=== PATIENT | female | born 1945 | race Caucasian/White ===

== ENCOUNTER 2019-07-09 09:05 | Emergency (ER) | payer OTHER ==
[~2019-07-09] VITALS: Ht 165.1 cm; Wt 61.2 kg
[~2019-07-09 09:05] MED LIST: ACYCLOVIR 200200 MG PO; ASPIRIN EC81 M1 PO; CARDIZEM CD240 MG PO; CRESTOR5 MG PO; FEMTRACE PO; GLUCOSAMINE-CH900 MG; LISINOPRIL40 MG PO; OMEGA-31000 M1 PO; PRILOSEC 20 MG20 MG PO; PROTONIX40 M2 PO; VITAMIN D31000 UNI2 PO; XANAX 0.5 MG0.5 MG PO; ZANTAC 150MG T150 M1 PO; ZANTAC 150MG T150 MG PO
[2019-07-09] MEDS ORDERED: AMITRIPTYLINE H10 M3 PO (09:10)
[2019-07-09] MEDS ORDERED: MELATONIN3 M3 PO (09:10)
[2019-07-09 09:18] LABS: HEMATOCRIT 41.7 % (37.0-47.0); MCH 33.5 pg (26.0-34.0); MCHC 33.6 g/dL (28.0-37.0); MCV 99.7 fL (80.0-100.0); PLATELET COUNT 214 thou/uL (150-400); RBC 4.18 mil/uL (4.20-5.00); RDW 14.3 % (10.5-14.5); WBC 8.5 thou/uL (4.0-11.0)
[2019-07-09 09:28] LABS: ANION GAP 8 mmol/L (7-16); BUN 28 mg/dL (7-18); CALCIUM 9.4 mg/dL (8.5-10.1); CHLORIDE 104 mmol/L (98-107); CO2 28 mmol/L (21-32); CREATININE 1.2 mg/dL (0.6-1.0); GLUCOSE 119 mg/dL (74-106); POTASSIUM 3.5 mmol/L (3.5-5.1); SODIUM 140 mmol/L (136-145)
[2019-07-09 09:38] LABS: ALBUMIN 3.7 g/dL (3.4-5.0); SGOT 22 U/L (15-37); SGPT 25 U/L (30-65); TOTAL BILIRUBIN 0.3 mg/dL (<0.1-1.0); TOTAL PROTEIN 7.4 g/dL (6.4-8.2); TROPONIN-I <0.06 ng/mL (<0.06)
[2019-07-09 09:47] LABS: ABSOLUTE NEUTROPHILS 4.8 thou/uL (1.4-8.2)
[2019-07-09 09:48] LABS: ANISOCYTOSIS SLIGHT
[2019-07-09] MEDS ORDERED: WELLBUTRIN SR150 MG PO (10:53)
[2019-07-09 12:09] VITALS: BP 131/73
--- NOTE | 2019-07-09 14:14 | EKG ---
[address] [place] [address] ELECTROCARDIOGRAM REPORT Name: ROMULO DIAZ [facility]: 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
--- NOTE | 2019-07-09 14:14 | EKG ---
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
== END 2019-07-09 12:10 | disposition home or self-care (01) ==
LOC: ER 09:05
PROVIDERS: Emergency Medicine
DX: R07.9 Chest pain, unspecified (principal); I10 Essential (primary) hypertension; K21.9 Gastro-esophageal reflux disease without esophagitis; E78.5 Hyperlipidemia, unspecified; F41.9 Anxiety disorder, unspecified; Z91.041 Radiographic dye allergy status; Z88.2 Allergy status to sulfonamides; Z88.1 Allergy status to other antibiotic agents; Z88.8 Allergy status to other drugs, medicaments and biological substances

== ENCOUNTER → 2020-03-16 | Outpatient (CLI) | payer OTHER ==
[~2020-03-16] MED LIST changes: +AMITRIPTYLINE H10 M3 PO; +MELATONIN3 M3 PO; +WELLBUTRIN SR150 MG PO
== END ==
LOC: SJCVC 15:47
PROVIDERS: ATTEND Internal Medicine Cardiovascular Disease
DX: I25.10 Atherosclerotic heart disease of native coronary artery without angina pectoris (principal); R93.1 Abnormal findings on diagnostic imaging of heart and coronary circulation; E78.00 Pure hypercholesterolemia, unspecified; I10 Essential (primary) hypertension; I65.23 Occlusion and stenosis of bilateral carotid arteries; K21.9 Gastro-esophageal reflux disease without esophagitis; M85.80 Other specified disorders of bone density and structure, unspecified site; M81.0 Age-related osteoporosis without current pathological fracture; Z79.899 Other long term (current) drug therapy; Z82.49 Family history of ischemic heart disease and other diseases of the circulatory system

== ENCOUNTER 2020-05-08 18:14 | Emergency (ER) | payer OTHER ==
[~2020-05-08] VITALS: Ht 165.1 cm; Wt 63.5 kg
[2020-05-08 21:23] LABS: ABSOLUTE NEUTROPHILS 4.2 thou/uL (1.4-8.2); BASOPHILS 1.2 % (0.0-2.0); EOSINOPHILS 1.5 % (0.0-3.0); HEMATOCRIT 41.5 % (37.0-47.0); HEMOGLOBIN 14.1 gm/dL (12.0-15.0); LYMPHOCYTES 27.8 % (24.0-44.0); MCH 33.7 pg (26.0-34.0); MCHC 33.9 g/dL (28.0-37.0); MCV 99.3 fL (80.0-100.0); MONOCYTES 11.2 % (1.0-8.0); PLATELET COUNT 233 thou/uL (150-400); POLYS 58.3 % (36.0-66.0); RBC 4.18 mil/uL (4.20-5.00); RDW 14.6 % (10.5-14.5); WBC 7.3 thou/uL (4.0-11.0)
[2020-05-08 21:33] LABS: ANION GAP 3 mmol/L (7-16); BUN 15 mg/dL (7-18); CALCIUM 8.7 mg/dL (8.5-10.1); CHLORIDE 96 mmol/L (98-107); CO2 31 mmol/L (21-32); GLUCOSE 99 mg/dL (74-106); POTASSIUM 5.2 mmol/L (3.5-5.1); SODIUM 130 mmol/L (136-145)
[2020-05-08 21:41] LABS: TROPONIN-I <0.06 ng/mL (<0.06)
[2020-05-09 00:25] LABS: CALCIUM 7.5 mg/dL (8.5-10.1); CREATININE 0.9 mg/dL (0.6-1.0)
[2020-05-09 00:27] LABS: POTASSIUM 3.8 mmol/L (3.5-5.1)
[2020-05-09 01:50] VITALS: BP 179/98
--- NOTE | 2020-05-09 10:52 | EKG ---
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 : 1945 Requested By: Kai Goodman Order Number: [id number] MD: Wallace Benton Measurements Intervals [place] Rate: 78 P: 46 [place]: 161 QRS: 34 QRSD: 84 T: 34 QT: 376 QTc: 429 Interpretive Statements Sinus rhythm Nonspecific ST segment abnormality Compared to ECG 07/09/2019 09:37:13 No significant change was found Electronically Signed On 05-09-2020 10:52:35 CDT by Wallace Benton [email or web address] <ELECTRONICALLY SIGNED> By: Wallace Benton MD, FACC 05/09/20 1052 08 08 Wallace Benton MD, [facility] /EPI
== END 2020-05-09 01:50 | disposition home or self-care (01) ==
LOC: ER 18:14
PROVIDERS: Emergency Medicine
DX: M25.511 Pain in right shoulder (principal); M25.512 Pain in left shoulder; I10 Essential (primary) hypertension; K21.9 Gastro-esophageal reflux disease without esophagitis; E78.5 Hyperlipidemia, unspecified; Z88.1 Allergy status to other antibiotic agents; Z88.2 Allergy status to sulfonamides; Z88.3 Allergy status to other anti-infective agents; Z88.8 Allergy status to other drugs, medicaments and biological substances; Z79.82 Long term (current) use of aspirin; Z79.899 Other long term (current) drug therapy

== ENCOUNTER → 2020-05-13 | Outpatient (CLI) | payer OTHER | LOC: SJCVCIMAG 09:19 | PROVIDERS: ATTEND Internal Medicine Cardiovascular Disease | DX: R07.9 Chest pain, unspecified (principal); E78.5 Hyperlipidemia, unspecified ==

== ENCOUNTER → 2020-08-03 | Outpatient (CLI) | payer OTHER | LOC: SJCVC 12:10 | PROVIDERS: ATTEND Internal Medicine Cardiovascular Disease | DX: R94.31 Abnormal electrocardiogram [ECG] [EKG] (principal); I10 Essential (primary) hypertension; R93.1 Abnormal findings on diagnostic imaging of heart and coronary circulation; E78.00 Pure hypercholesterolemia, unspecified; I65.23 Occlusion and stenosis of bilateral carotid arteries; Z79.899 Other long term (current) drug therapy ==

== ENCOUNTER → 2021-02-08 | Outpatient (CLI) | payer OTHER | LOC: SJCVCIMAG 09:47 | PROVIDERS: ATTEND Internal Medicine Cardiovascular Disease | DX: I25.10 Atherosclerotic heart disease of native coronary artery without angina pectoris (principal); R07.89 Other chest pain; I10 Essential (primary) hypertension; E78.5 Hyperlipidemia, unspecified; R53.83 Other fatigue; R06.00 Dyspnea, unspecified ==

== ENCOUNTER → 2021-11-11 | Outpatient (CLI) | payer OTHER | LOC: SJCVC 11:01 | PROVIDERS: ATTEND Internal Medicine Cardiovascular Disease | DX: R93.1 Abnormal findings on diagnostic imaging of heart and coronary circulation (principal); I10 Essential (primary) hypertension; E78.00 Pure hypercholesterolemia, unspecified; I65.23 Occlusion and stenosis of bilateral carotid arteries; M54.9 Dorsalgia, unspecified; K21.9 Gastro-esophageal reflux disease without esophagitis; M81.0 Age-related osteoporosis without current pathological fracture; Z79.82 Long term (current) use of aspirin; Z79.899 Other long term (current) drug therapy; Z90.710 Acquired absence of both cervix and uterus; E89.0 Postprocedural hypothyroidism; Z72.89 Other problems related to lifestyle; Z88.2 Allergy status to sulfonamides; Z88.1 Allergy status to other antibiotic agents; Z88.8 Allergy status to other drugs, medicaments and biological substances ==